=== PATIENT | male | born 1945 | race Caucasian/White ===

== ENCOUNTER 2024-04-29 08:15 | Outpatient (CLI) | payer OTHER ==
[2024-04-29] MEDS ORDERED: E-Z-HD 98% W/W 340GM BOT (x-ray ONLY) ONE (08:42)
[2024-04-29] MEDS ORDERED: Barium Sulfate 96% 176 GM BOT (xray ONLY) ONE (08:42)
== END 2024-04-29 08:16 | disposition home or self-care (01) ==
LOC: RAD 08:15
PROVIDERS: ATTEND Internal Medicine
DX: R13.10 Dysphagia, unspecified (principal); K44.9 Diaphragmatic hernia without obstruction or gangrene; K22.4 Dyskinesia of esophagus
CPT/HCPCS: 74220